=== PATIENT | female | born 1975 | race African-American/Black ===

== ENCOUNTER 2018-03-31 15:50 | Outpatient (CLI) | payer BC, OTHER ==
--- NOTE | 2018-03-31 22:02 | RAD ---
CHEST TWO VIEWS: 03/31/18 Comparison is made with an 12/20/17 study. There is linear infiltrate seen behind the heart on the lateral view near the diaphragm. It is diffic ult to locate on the PA film, but is most likely in the left base. The linear nature makes it most li donald that this is subsegmental atelectasis and less likely that it is pneumonia. Depending upon the p atient's symptoms, one may need further followup films. A Mediport catheter enters from the left side . The upper lobes are clear. The heart is normal in size. IMPRESSION: Linear basilar infiltrate posteriorly. Thought to be more likely atelectasis than pneumonia due to it s linear shape. POS: HOME
== END 2018-03-31 15:51 | disposition home or self-care (01) ==
LOC: BURRAD 15:50
PROVIDERS: ATTEND Family Medicine
DX: J22 Unspecified acute lower respiratory infection (principal); R91.8 Other nonspecific abnormal finding of lung field
CPT/HCPCS: 71046

== ENCOUNTER 2018-06-06 09:32 | Emergency (ER) | payer BC, OTHER ==
--- NOTE | 2018-06-06 14:30 | RAD ---
PORTABLE CHEST: Date: 06/06/18 An AP portable film at 0939 hours is compared with an 03/31/18 study. FINDINGS: There is some haziness in the left base and poor definition of the left hemidiaphragm suggesting an i nfiltrate here. The right lung seems clear. The upper lobes are unremarkable. The cardiac size is nor mal. IMPRESSION: Presumed left lower lobe infiltrate. CODE T. POS: HOME
== END 2018-06-06 10:33 | disposition home or self-care (01) ==
LOC: BURERS 09:32
DX: J22 Unspecified acute lower respiratory infection (principal); G43.909 Migraine, unspecified, not intractable, without status migrainosus; I10 Essential (primary) hypertension; Z87.891 Personal history of nicotine dependence; Z79.899 Other long term (current) drug therapy
CPT/HCPCS: 71045; 87804

== ENCOUNTER 2018-12-30 21:11 | Emergency (ER) | payer BC, OTHER ==
[~2018-12-30 21:11] MED LIST: EPINEPHrine 1 MG/10 ML Abboject SYRINGE ONE; Sodium Bicarb 50 MEQ/50 ML Abboject 8.4% SYRINGE ONE
[2018-12-30 21:53] LABS: ALT (SGPT) 110 U/L (8-55); AST (SGOT) 44 U/L (5-34); Albumin 3.2 g/dL (3.5-5.0); Alkaline Phosphatase 40 U/L (40-150); Anion Gap 25 mmol/L (10-20); BUN (Urea Nitrogen) 11 mg/dL (7.0-18.7); Bilirubin, Total 0.2 mg/dL (0.2-1.2); CK (CPK) 69 U/L (29-168); CKMB 3.5 ng/mL (0-6.6); Calc. Creatinine Clearance 0 mL/min (70-130); Calcium 9.8 mg/dL (7.8-10.44); Carbon Dioxide 21 mmol/L (22-29); Chloride 77 mmol/L (98-107); Estimated GFR-MDRD Greater than 90; Globulin 1.9 g/dL (2.4-3.5); Protein, Total 5.1 g/dL (6.0-8.3); Troponin I 0.015 ng/mL (< 0.028)
[2018-12-30] MEDS ORDERED: Ketamine 50 MG/ML (10ML VIAL) ONE (21:55)
[2018-12-30 21:57] LABS: #Basophils 0.1 thou/uL (0.0-0.2); #Lymphocytes 2.3 thou/uL (1.20-3.40); #Monocytes 0.2 thou/uL (0.11-0.59); #Neutrophils 2.3 thou/uL (1.40-6.50); %Eosinophils 0.2 % (0.0-10.0); %Lymphocytes 47.4 % (21.0-51.0); %Neutrophils 47.5 % (42.0-75.0); Hemoglobin 9.9 g/dL (12.0-16.0); Mean Corpuscular HGB CONC 29.3 g/dL (32.0-36.0); Mean Corpuscular Hemoglobin 23.5 pg (27.0-31.0); Mean Corpuscular Volume 80.2 fL (78.0-98.0); Mean Platelet Volume 8.8 fL (7.4-10.4); Platelet Count 232 thou/uL (130-400); RBC Distribution Width 13.1 % (11.5-14.5); Red Blood Cell (RBC) Count 4.19 mill/uL (4.20-5.40); White Blood Cell (WBC) Count 4.9 thou/uL (4.8-10.8)
--- NOTE | 2018-12-30 21:59 | RAD ---
XR Chest 1 View Portable HISTORY: Chest pain. Endotracheal tube placement. COMPARISON: 06/06/2018 study. FINDINGS: Endotracheal tube is in satisfactory position. An NG tube is seen the tip at mid esophagus level. Left-sided Mediport catheter is seen in the catheter tip overlying the superior vena cava. Heart size is within normal limits there are increased parahilar and lower lobe lung markings in a pa ttern most suggestive of pulmonary edema. IMPRESSION: Pulmonary edema type changes. Endotracheal tube is in satisfactory position. There is als o what appears be an NG tube present with tip at the mid esophagus level. It appears to be coiled in the cervical region.
[2018-12-30 22:01] LABS: Platelet Morphology Comment Appears Adequate; RBC Morphology Normal
[2018-12-30 22:03] LABS: Sodium 118 mmol/L (136-145)
[2018-12-30 22:04] LABS: Glucose 303 mg/dL (70-105)
== END 2018-12-30 22:30 | disposition short-term general hospital (02) ==
LOC: BURERS 21:11
DX: I46.9 Cardiac arrest, cause unspecified (principal); K21.9 Gastro-esophageal reflux disease without esophagitis; G43.909 Migraine, unspecified, not intractable, without status migrainosus; Z87.891 Personal history of nicotine dependence
CPT/HCPCS: 31500; 36415; 51702; 71045; 80053; 82550; 82553; 83880; 84484; 85025; 85379; 92950; J0171